=== PATIENT | male | born 2000 | race Caucasian/White ===

== ENCOUNTER 2023-04-30 14:14 | Inpatient (IN) | payer OTHER ==
[~2023-04-30] VITALS: Ht 175.3 cm; Wt 106.8 kg
[2023-04-30] MEDS ORDERED: HYDR-4808 PO (15:39)
[2023-04-30] MEDS ORDERED: IBUP-1492 PO (15:39)
[2023-04-30] MEDS ORDERED: AMIT50TA4 PO (15:39)
[2023-04-30] MEDS ORDERED: RIVA20TA PO (15:39)
[2023-04-30] MEDS ORDERED: ACET-3385 PO (15:39)
[2023-04-30 16:23] LABS: BASOPHILS % (AUTO) 0.4 % (0.0-2.0); EOSINOPHILS % (AUTO) 0.6 % (1.0-6.0); HEMOGLOBIN 12.8 g/dL (13.5-17.5); LYMPHOCYTES # (AUTO) 1.5 K/uL (1.0-4.8); LYMPHOCYTES % (AUTO) 20.6 % (22.0-44.0); MEAN CORPUSCULAR HEMOGLOBIN 26.3 pg (26.0-34.0); MEAN CORPUSCULAR HGB CONC 32.1 G/dL (31.0-37.0); MEAN CORPUSCULAR VOLUME 82 fL (80-100); MONOCYTES # (AUTO) 0.7 K/uL (0.1-1.0); MONOCYTES % (AUTO) 9.5 % (2.0-9.0); NEUTROPHILS # (AUTO) 5.1 K/uL (1.8-7.7); NEUTROPHILS % (AUTO) 68.9 % (40.0-70.0); PLATELET COUNT (AUTO) 290 K/uL (150-450); RED BLOOD CELL COUNT(AUTO) 4.89 MIL/uL (4.50-5.90); RED CELL DISTRIBUTION WIDTH 16.5 % (11.5-14.5)
[2023-04-30 16:35] LABS: D-DIMER 0.97 mg/L FEU (0.00-0.50); INR 1.1 (0.9-1.1)
[2023-04-30 16:40] LABS: COVID AG,FIA SOURCE NASOPHARYNGEAL
[2023-04-30] MEDS ORDERED: MAGNESIUM HYDROXIDE SUSPENSION 30 ML UDCUP PO PRN (16:45)
[2023-04-30] MEDS ORDERED: ACETAMINOPHEN 325 MG TABLET PO PRN (16:45)
[2023-04-30] MEDS ORDERED: ZOLPIDEM TARTRATE 5 MG TABLET PO PRN (16:45)
[2023-04-30 16:55] LABS: ANION GAP 10 mmol/L (8-16); CALCIUM, TOTAL 9.4 mg/dL (8.8-10.5); CARBON DIOXIDE 27 mmol/L (22-29); CHLORIDE 105 mmol/L (98-107); CREATININE 0.78 mg/dL (0.60-1.30); GLOMERULAR FILTR. RATE CALC > 60 mL/min (>60); GLUCOSE,RANDOM 111 mg/dL (70-110); POTASSIUM 3.9 mmol/L (3.5-5.1); SODIUM SERUM 142 mmol/L (136-145)
[2023-04-30] MEDS ORDERED: IOHEXOL 350 MG/ML 100 ML VIAL ONE (17:01)
[2023-04-30] MEDS ORDERED: SODIUM CHLORIDE 0.9% 100 ML ONE (17:02)
[2023-04-30 17:24] LABS: B-TYPE NATRIURETIC PEPTIDE < 5 pg/mL (0-100)
[2023-04-30] MEDS ORDERED: RIVAROXABAN 20 MG TABLET PO SCH (17:30)
[2023-04-30 18:05] LABS: ALANINE AMINOTRANSFERASE 47 U/L (12-78); ALBUMIN 3.9 g/dL (3.4-5.0); ALKALINE PHOSPHATASE 196 U/L (46-116); ASPARTATE AMINOTRANSFERASE 24 U/L (15-37); BILIRUBIN,TOTAL 0.4 mg/dL (0.1-1.0); CREATINE KINASE, TOTAL ONLY 260 U/L (39-308); TOTAL PROTEIN, SERUM 7.8 g/dL (6.4-8.2)
[2023-04-30] MEDS ORDERED: HEPARIN SODIUM 25000 UNITS/D5W 250 ML IV PRN (19:00)
[2023-04-30] MEDS ORDERED: HEPARIN SODIUM,PORCINE 5,000 UNITS/ML VIAL IVP PRN ×2 (19:00)
[2023-04-30] MEDS ORDERED: HEPARIN SODIUM,PORCINE 5,000 UNITS/ML VIAL IVP ONE (19:00)
[2023-04-30] MEDS ORDERED: MELATONIN 3 MG TABLET PO ONE (19:15)
[2023-04-30 20:02] VITALS: BP 144/85; PULSE 70; RESP 20; TEMP 98.4
[2023-04-30] MEDS ORDERED: SODIUM CHLORIDE 0.9% 250 ML IV ONE (20:02)
[2023-04-30 20:51] LABS: INR 1.1 (0.9-1.1); PROTHROMBIN TIME 11.5 SEC (9.4-11.6)
[2023-05-01 04:32] VITALS: BP 142/79; PULSE 62; RESP 20; TEMP 97.8
[2023-05-01 08:17] VITALS: BP 135/71; PULSE 63; RESP 18; TEMP 98
[2023-05-01] MEDS ORDERED: APIXABAN 5 MG TABLET PO SCH (09:00)
[2023-05-01] MEDS ORDERED: FAMOTIDINE 20 MG TABLET PO SCH (09:00)
[2023-05-01] MEDS ORDERED: ENOXAPARIN SODIUM 60 MG/0.6 ML PF SYRINGE SQ SCH (09:00)
[2023-05-01] MEDS ORDERED: FAMO20 PO (09:43)
[2023-05-01] MEDS ORDERED: APIX5TAB PO (09:43)
[2023-05-01] MEDS ORDERED: ACET-2247 PO (09:44)
[2023-05-01] MEDS ORDERED: MAGN-169 PO (09:45)
[2023-05-01 19:49] VITALS: BP 140/73; PULSE 63; RESP 18; TEMP 98.5
== END 2023-05-01 19:55 | DRG 301 ==
LOC: EMS 14:14 → 6S 17:47
PROVIDERS: ADMIT Internal Medicine; ATTEND Internal Medicine
DX: I82.432 Acute embolism and thrombosis of left popliteal vein (principal); I82.412 Acute embolism and thrombosis of left femoral vein; E66.9 Obesity, unspecified; F41.9 Anxiety disorder, unspecified; G89.29 Other chronic pain; Z20.822 Contact with and (suspected) exposure to COVID-19; Z86.718 Personal history of other venous thrombosis and embolism; Z87.828 Personal history of other (healed) physical injury and trauma; Z91.199 Patient's noncompliance with other medical treatment and regimen due to unspecified reason; Z68.34 Body mass index [BMI] 34.0-34.9, adult; Z79.899 Other long term (current) drug therapy
CPT/HCPCS: 71045; 71275; 80053; 82550; 83880; 84484; 85025; 85260; 85379; 85610; 85730; 93005; 93970; 99285; G0480; J1644; J1650; J7050; Q9967; 36415-L1; 36415-TC